=== PATIENT | female | born 1960 | race Caucasian/White ===

== ENCOUNTER 2016-05-25 09:22 | Outpatient (CLI) | payer OTHER ==
--- NOTE | 2016-05-25 13:59 | Cat Scan Report ---
CT abdomen and pelvis with contrast: Transverse images are obtained from lower chest to the ischium with coronal and sagittal 2-D reformatted images. The visualized lungs are unremarkable. There appears to be a small hiatus hernia. The abdominal organs are unremarkable. There is a single subcentimeter cortical cyst in the mid right kidney and a 17 mm cyst in the posterior mid left kidney. Retroperitoneal structures are not otherwise remarkable. The abdominal aorta is well-opacified with normal size and contour. The partially opacified bowel and mesentery is generally unremarkable. There is a long cephalad oriented retrocecal appendix. The pelvic organs are present. Degenerative gas and narrowing of the discs are identified at the L4-5 and L5-S1 levels. Impression: No acute findings or significant soft tissue pathology identified. Degenerative L4-S1 discs.
== END 2016-05-25 09:23 | disposition home or self-care (01) ==
LOC: CT 09:22
PROVIDERS: ATTEND Internal Medicine Gastroenterology
DX: N28.1 Cyst of kidney, acquired (principal); R10.31 Right lower quadrant pain
CPT/HCPCS: 74177; Q9967